=== PATIENT | female | born 1935 | race Caucasian/White ===

== ENCOUNTER → 2023-09-25 23:59 | Outpatient (RCR) | payer MEDICARE, SELFPAY ==
[2020-12-30 14:25] LABS: Hematocrit 31.8 % (37-47); Hemoglobin 10.3 g/dL (12.0-15.0); Mean Corp Hgb Conc 32.4 g/dL (32-36); Mean Corpuscular Hgb 30.7 pg (27.0-32.0); Mean Corpuscular Volume 94.6 fL (81-99); Mean Platelet Vol. 9.2 fl (6.2-12.0); Platelet Count 296 K/mm3 (150-450); RBC Distribution Width CV 16.5 % (11.6-14.6); RBC Distribution Width SD 57.7 fl (35.1-43.9); Red Blood Count 3.36 M/mm3 (4.2-5.4); White Blood Count 5.9 K/mm3 (4.4-11.0)
== END ==
LOC: HH 12-30 14:12
PROVIDERS: Internal Medicine Geriatric Medicine; PCP Family Medicine; Visit Provider Family Medicine
DX: I10 Essential (primary) hypertension (principal)
CPT/HCPCS: 85027